=== PATIENT | male | born 1960 | race Caucasian/White ===

== ENCOUNTER 2017-11-22 20:32 | Emergency (ER) | payer OTHER ==
[~2017-11-22] VITALS: Ht 190.5 cm; Wt 79.5 kg
[~2017-11-22 20:32] MED LIST: ESCI20TA PO; FOLI0.4T2 PO; SULF500T9 PO
[2017-11-22 21:21] LABS: INR 0.9 INR; PARTIAL THROMBOPLASTIN TIME 26 SECONDS (22-32); PROTHROMBIN TIME 9.7 SECONDS (9.0-12.0)
[2017-11-22 21:27] LABS: BASOPHILS % (AUTO) 0.3 % (0-1); EOSINOPHILS # (AUTO) 0.1 X10'3 (0-0.9); EOSINOPHILS % (AUTO) 0.9 % (0-6); LYMPHOCYTES # (AUTO) 2.1 X10'3 (1.1-4.8); LYMPHOCYTES % (AUTO) 29.2 % (21-51); MEAN PLATELET VOLUME 7.7 FL (7.4-10.4); MONOCYTES # (AUTO) 0.5 X10'3 (0-0.9); MONOCYTES % (AUTO) 6.7 % (2-12); NEUTROPHILS # (AUTO) 4.5 X10'3 (1.8-7.7); NEUTROPHILS % (AUTO) 62.9 % (42-75); WHITE BLOOD COUNT 7.2 X10'3 (4.5-11.0)
[2017-11-22 21:31] LABS: PLATELET COUNT 299 X10'3 (140-440)
[2017-11-22 21:32] LABS: LIPASE 234 U/L (73-393); MAGNESIUM 1.8 MG/DL (1.5-2.4); PHOSPHORUS 3.9 MG/DL (2.3-4.5)
[2017-11-22 21:39] LABS: HEMOGLOBIN 11.7 g/dl (14.0-17.9); RED BLOOD COUNT 3.88 X10'6 (4.70-6.10)
[2017-11-22 21:40] LABS: HEMATOCRIT 33.9 % (42.0-52.0); MEAN CORPUSCULAR HEMOGLOBIN 30.1 PG (27.0-31.0); MEAN CORPUSCULAR HGB CONC 34.5 % (33.0-36.5); MEAN CORPUSCULAR VOLUME 87.4 FL (78-98)
[2017-11-22 22:11] LABS: ALANINE AMINOTRANSFERASE 37 U/L (12-78); ALBUMIN 3.7 G/DL (3.4-5.0); ALBUMIN/GLOBULIN RATIO 0.9 (1.1-1.5); ALKALINE PHOSPHATASE 97 IU/L (46-116); ANION GAP 14 (8-16); ASPARTATE AMINO TRANSFERASE 34 U/L (10-37); BILIRUBIN,TOTAL 0.4 MG/DL (0.1-1.0); BLOOD UREA NITROGEN 22 MG/DL (7-18); BUN/CREATININE RATIO 21.8 (5.4-32.0); CALCIUM 9.3 MG/DL (8.5-10.1); CHLORIDE 104 MMOL/L (99-107); CREATININE 1.01 MG/DL (0.60-1.10); GLUCOSE 105 MG/DL (70-104); POTASSIUM 3.9 MMOL/L (3.5-5.1); SODIUM 140 MMOL/L (135-145); TOTAL CARBON DIOXIDE 22.2 MMOL/L (24-32); TOTAL PROTEIN 7.6 G/DL (6.4-8.2); eGFR 76 ML/MIN
[2017-11-22 22:24] LABS: CLARITY,URINE CLEAR (Clear); COLOR,URINE YELLOW (Yellow); GLUCOSE, URINE NEGATIVE (Neg); KETONES,URINE NEGATIVE (Neg); LEUKOCYTE ESTERASE ,URINE NEGATIVE (Neg); NITRITES, URINE NEGATIVE (Neg); OCCULT BLOOD,URINE NEGATIVE (Neg); PROTEIN,URINE NEGATIVE (Neg); UA COLLECTION TYPE VOIDED; UROBILINOGEN,URINE 0.2 E.U/dL (0.2-1.0)
[2017-11-23 00:05] VITALS: BP 121/77
== END 2017-11-23 00:08 | disposition home or self-care (01) ==
LOC: ER 20:34
DX: R19.7 Diarrhea, unspecified (principal); M54.5 Low back pain; Z79.899 Other long term (current) drug therapy
CPT/HCPCS: 36415; 71045; 80053; 81003; 83690; 83735; 83880; 84100; 84484; 85025; 85610; 85730; 87045; 87046; 93005; 99285

== ENCOUNTER 2020-12-05 06:49 | Day surgery (SDC) | payer OTHER, MEDICARE ==
[~2020-12-05] VITALS: Ht 180.3 cm; Wt 96.6 kg
[2020-12-05] VITALS (11 sets, daily range): BP systolic 102–118; BP diastolic 63–88
[~2020-12-05 06:49] MED LIST changes: -FOLI0.4T2 PO; +FOLI0.4T6 PO
[2020-12-05] MEDS ORDERED: METO-395 PO (07:13)
[2020-12-05] MEDS ORDERED: APIX5TAB3 PO (07:13)
[2020-12-05] MEDS ORDERED: fentaNYL/PF 50MCG/1 ML 2ML syringe IV ONE (07:15)
[2020-12-05] MEDS ORDERED: morphine 10mg/ml inj. IV ONE (07:15)
[2020-12-05] MEDS ORDERED: normal saline 1000ml 1,000 ML IV SCH (07:15)
[2020-12-05] MEDS ORDERED: MIDAZolam 1mg/ml 10ml vial IV ONE (08:05)
[2020-12-05 08:15] LABS: BASOPHILS % (AUTO) 0.2 % (0-1); EOSINOPHILS % (AUTO) 0.9 % (0-6); HEMATOCRIT 42.4 % (42.0-52.0); HEMOGLOBIN 14.2 g/dl (14.0-17.9); LYMPHOCYTES # (AUTO) 1.9 X10'3 (1.1-4.8); LYMPHOCYTES % (AUTO) 33.5 % (21-51); MEAN CORPUSCULAR HEMOGLOBIN 30.7 PG (27.0-31.0); MEAN CORPUSCULAR HGB CONC 33.5 g/dL (33.0-36.5); MEAN CORPUSCULAR VOLUME 91.6 FL (78-98); MEAN PLATELET VOLUME 8.7 FL (7.4-10.4); MONOCYTES # (AUTO) 0.6 X10'3 (0-0.9); MONOCYTES % (AUTO) 11.3 % (2-12); NEUTROPHILS % (AUTO) 54.1 % (42-75); PLATELET COUNT 140 X10'3 (140-440); RED BLOOD COUNT 4.63 X10'6 (4.70-6.10); RED CELL DISTRIBUTION WIDTH 17.1 % (11.5-14.5); WHITE BLOOD COUNT 5.6 X10'3 (4.5-11.0)
[2020-12-05 08:29] LABS: ALBUMIN 3.7 G/DL (3.4-5.0); ANION GAP 12 (8-16); BLOOD UREA NITROGEN 29 MG/DL (7-18); BUN/CREATININE RATIO 34.1 (5.4-32.0); CALCIUM 9.3 MG/DL (8.5-10.1); CHLORIDE 106 MMOL/L (99-107); CREATININE 0.85 MG/DL (0.60-1.10); GLUCOSE 102 MG/DL (70-104); POTASSIUM 4.5 MMOL/L (3.5-5.1); SODIUM 143 MMOL/L (135-145); TOTAL CARBON DIOXIDE 24.6 MMOL/L (24-32); eGFR > 90 ML/MIN
[2020-12-05] MEDS ORDERED: flecainide 50mg tablet PO ONE (09:40)
== END 2020-12-05 10:35 | disposition home or self-care (01) ==
LOC: SSTAY O 06:49
PROVIDERS: ATTEND Internal Medicine Cardiovascular Disease
DX: I48.4 Atypical atrial flutter (principal); Z98.890 Other specified postprocedural states; Z98.52 Vasectomy status; Z95.1 Presence of aortocoronary bypass graft; Z79.01 Long term (current) use of anticoagulants; Z79.899 Other long term (current) drug therapy
CPT/HCPCS: 36415; 80048; 83735; 85025; 85610; 92960; 93005; J2250; J3010; J7030

== ENCOUNTER 2024-12-24 08:10 | Day surgery (SDC) | payer OTHER, MEDICARE ==
[~2024-12-24] VITALS: Ht 185.4 cm; Wt 96.8 kg
[~2024-12-24 08:10] MED LIST changes: +APIX5TAB3 PO; -ESCI20TA PO; -FOLI0.4T6 PO; +METO-395 PO; -SULF500T9 PO
[2024-12-24 08:30] VITALS: BP 123/85; PULSE 76; RESP 17; TEMP 97.6; O2SAT 93
[2024-12-24] MEDS ORDERED: MIDAZolam 1mg/ml 10ml vial IV ONE (08:30)
[2024-12-24] MEDS ORDERED: fentaNYL/PF 50MCG/1 ML 2ML syringe IV ONE (08:30)
--- NOTE | 2024-12-24 08:48 | ELECTROCARDIOGRAPH REPORT ---
[facility] Test Date: 2024-12-24 Test Time: 09:44:10 Pat Name: MONICO KHALIL Department: [facility] Patient ID: [facility]-[id number] Room: Gender: M Environmental Services Lead: WINSTON : 1960 Requested By: CHATO MEDINA Order Number: [id number] Reading MD: Dr. MAI Osorio Measurements Intervals Dawson Rate: 65 P: 0 TX: 0 QRS: 48 QRSD: 104 T: 56 QT: 518 QTc: 539 Interpretive Statements Atrial flutter. Second deg AVB, Mobitz I (Wenckebach) ST depr, consider ischemia, inferior leads Prolonged QT interval Electronically Signed On 12-24-2024 17:48:[address] MAI Osorio Please click the below link to view image of tracing.
[2024-12-24] MEDS ORDERED: ALLO100T PO (08:50)
[2024-12-24] MEDS ORDERED: FLEC100T35 PO (08:50)
[2024-12-24] MEDS: normal saline 1000ml 1,000 ML IV SCH (08:55)
[2024-12-24 08:58] LABS: MEAN PLATELET VOLUME 8.8 FL (7.4-10.4); RED CELL DISTRIBUTION WIDTH 15.3 % (11.5-14.5)
[2024-12-24 09:04] LABS: CREATININE 0.78 MG/DL (0.60-1.10); TOTAL CARBON DIOXIDE 26.1 MMOL/L (24-32); eCRCL 108 ML/MIN; eGFR > 90 ML/MIN
[2024-12-24 09:06] LABS: INR 1.0 INR
[2024-12-24] MEDS ORDERED: midazolam 1 mg/ML 2ml injection ONE (09:16)
[2024-12-24] MEDS ORDERED: amiodarone 50MG/ML inj IV ONE (09:16)
[2024-12-24] MEDS ORDERED: fentaNYL/PF 50MCG/1 ML 2ML syringe ONE (09:17)
[2024-12-24] MEDS ORDERED: atropine 0.1mg/ml 10ml syringe ONE (09:17)
[2024-12-24 09:50] VITALS: BP 115/82; PULSE 57; RESP 11; O2SAT 94
--- NOTE | 2024-12-24 09:56 | CARDIOLOGY REPORT ---
DATE OF SERVICE: 12/24/2024 DICTATING PHYSICIAN: CHATO MEDINA DO PROCEDURE: DC cardioversion. PREPROCEDURAL DIAGNOSIS: Atrial fibrillation. POSTPROCEDURAL DIAGNOSIS: Atrial fibrillation, cardioverted to sinus rhythm. DESCRIPTION OF PROCEDURE: The patient was sedated with fentanyl and Versed. He was then given one 200 joule synchronized shock resulting in conversion to sinus rhythm. COMPLICATIONS: There were no complications. PLAN: Ongoing medical therapy. FINAL DIAGNOSIS: Atrial flutter cardioverted to sinus rhythm. CHATO MEDINA DO TID: [id number] RECEIPT: [id number] VALERIE/GREGG
[2024-12-24 10:00] VITALS: BP 106/72; PULSE 57; RESP 8; O2SAT 94
[2024-12-24 10:15] VITALS: BP 103/71; PULSE 57; RESP 12; O2SAT 95
[2024-12-24 10:30] VITALS: BP 112/73; PULSE 55; RESP 15; O2SAT 96
--- NOTE | 2024-12-24 10:32 | ELECTROCARDIOGRAPH REPORT ---
[facility] Test Date: 2024-12-24 Test Time: 11:28:24 Pat Name: MONICO KHALIL Department: [facility] Patient ID: [facility]-[id number] Room: Gender: M [employer] Operator: WINSTON : 1960 Requested By: CHATO MEDINA Order Number: [id number] Reading MD: Dr. MAI Osorio Measurements Intervals [place] Rate: 54 P: 76 ND: 299 QRS: 60 QRSD: 105 T: 52 QT: 468 QTc: 444 Interpretive Statements Sinus rhythm Prolonged ND interval Electronically Signed On 12-24-2024 17:49:[address] MAI Osorio Please click the below link to view image of tracing.
[2024-12-24 10:43] VITALS: BP 114/69; PULSE 54; RESP 14; O2SAT 95
== END 2024-12-24 10:50 | disposition home or self-care (01) ==
LOC: SSTAY O 08:10
PROVIDERS: ATTEND Internal Medicine Cardiovascular Disease
DX: I48.91 Unspecified atrial fibrillation (principal); I48.3 Typical atrial flutter; R94.31 Abnormal electrocardiogram [ECG] [EKG]; E78.5 Hyperlipidemia, unspecified; F17.210 Nicotine dependence, cigarettes, uncomplicated; G47.30 Sleep apnea, unspecified; Z79.01 Long term (current) use of anticoagulants; Z79.899 Other long term (current) drug therapy; Z95.2 Presence of prosthetic heart valve; Z98.890 Other specified postprocedural states; Z88.1 Allergy status to other antibiotic agents; Z88.8 Allergy status to other drugs, medicaments and biological substances
CPT/HCPCS: 36415; 80048; 83735; 85025; 85610; 92960; 93005; J2250; J3010; J7030; 99152; J0282; J0461